=== PATIENT | female | born 1990 | race Caucasian/White ===

== ENCOUNTER 2024-10-19 11:32 | Emergency (ER) | payer BC ==
[2024-10-19] MEDS ORDERED: Albuterol/Ipratropium 3.0-0.5 MG/3 ML Neb Soln NEB ONE (12:04)
[2024-10-19] MEDS: Sodium Chloride 0.9% 1,000 ML IV ONE (12:29)
[2024-10-19] MEDS: methylPREDNISolone Sod Succ 250 MG in Dextrose 5% in Water 100 ML IV ONE (12:29)
[2024-10-19] MEDS: Magnesium Sulfate/Water Premix 2 GM in Premix Bag 1 BAG IV ONE (12:30)
[2024-10-19 12:47] LABS: BASE EXCESS VENOUS -0.6 mm/L; BASOPHILS PERCENT AUTO 0.2 % (0.1-1.3); BICARBONATE,VENOUS 22.7 mmol/L; CARBOXYHEMOGLOBIN 1.9 % (0.0-1.6); HEMATOCRIT 37.6 % (34.3-46.0); HEMOGLOBIN 13.9 g/dL (11.2-15.5); LYMPHOCYTES ABSOLUTE AUTO 1.33 K/uL (0.8-3.3); LYMPHOCYTES PERCENT AUTO 13.9 % (11.4-47.7); MEAN CORPUSCULAR HEMOGLOBIN 31.6 pg (31.6-35.5); MEAN CORPUSCULAR VOLUME 85.5 fL (81.4-99.0); METHEMOGLOBIN 1.1 %; MONOCYTES ABSOLUTE AUTO 0.69 K/uL (0.20-0.90); MONOCYTES PERCENT AUTO 7.2 % (3.3-12.6); NEUTROPHILS ABSOLUTE AUTO 7.36 K/uL (1.0-7.6); NEUTROPHILS PERCENT AUTO 76.7 % (40.0-78.1); O2 SATURATION VENOUS 64.5; OXYHEMOGLOBIN 62.6 %; PCO2 VENOUS 35.3 mm/Hg; PH,VENOUS 7.425 (7.350-7.450); PLATELET COUNT,PLT 172 K/uL (130-375); TOTAL HEMOGLOBIN 14.4 g/dL (12.0-16.0); WHITE BLOOD CELL COUNT,WBC 9.6 K/uL (3.2-11.0)
[2024-10-19 12:49] LABS: BASOPHILS ABSOLUTE AUTO 0.02 K/uL (0.00-0.10); PO2 VENOUS 31.7 mm/Hg
[2024-10-19 13:01] LABS: APPEARANCE,URINE CLEAR (CLEAR); BILIRUBIN,URINE NEGATIVE (NEGATIVE); COLOR,URINE YELLOW (YELLOW); GLUCOSE,URINE NEGATIVE (NEGATIVE); KETONES,URINE NEGATIVE (NEGATIVE); LEUKOCYTE ESTERASE,URINE NEGATIVE (NEGATIVE); NITRITE,URINE NEGATIVE (NEGATIVE); OCCULT BLOOD,URINE NEGATIVE (NEGATIVE); PROTEIN,URINE NEGATIVE (NEGATIVE); UROBILINOGEN,URINE 0.2 EU/dL (0.2-1.0)
[2024-10-19 13:02] LABS: BACTERIA,URINE NOT SEEN; EPITHELIAL CELLS,URINE NOT SEEN; MUCUS,URINE NOT SEEN; RBC,URINE NOT SEEN (0-5); WBC,URINE NOT SEEN (0-5)
[2024-10-19 13:10] LABS: ALANINE AMINOTRANSFERASE,ALT 26 U/L (12-78); ALKALINE PHOSPHATASE 69 U/L (46-116); ANION GAP 11.5 mmol/L (5.0-14.0); ASPARTATE AMNIOTRANSFERASE,AST 19 U/L (15-37); BILIRUBIN TOTAL 0.5 mg/dL (0.2-1.0); BLOOD UREA NITROGEN,BUN 8 mg/dL (7-18); CALCIUM 8.9 mg/dL (8.5-10.1); CARBON DIOXIDE,CO2 25 mmol/L (21-32); CHLORIDE,CL 105 mmol/L (100-108); CREATININE 0.9 mg/dL (0.6-1.0); EST CRCL DRUG DOSING (CG) 75.34 mL/min; ESTIMATED GFR 86 mL/min (>60); GLUCOSE RANDOM 130 mg/dL (74-106); POTASSIUM,K 3.6 mmol/L (3.6-5.2); SODIUM,NA 141 mmol/L (140-148)
[2024-10-19 14:45] VITALS: BP 147/93; PULSE 104
== END 2024-10-19 14:45 | disposition home or self-care (01) ==
LOC: JP.ED 11:32
DX: J18.9 Pneumonia, unspecified organism (principal); Z88.8 Allergy status to other drugs, medicaments and biological substances; Z79.899 Other long term (current) drug therapy
CPT/HCPCS: 36415; 71045; 71045-26; 80053; 81001; 81025; 82803; 83605; 84145; 85025; 86140; 87428-QW; 99285